=== PATIENT | female | born 1985 | race Caucasian/White ===

== ENCOUNTER 2020-08-01 19:21 | Emergency (ER) | payer SELFPAY ==
[~2020-08-01] VITALS: Ht 154.9 cm; Wt 80.0 kg
[~2020-08-01 19:21] MED LIST: CIPROFLOXACN500 MG PO; FLEXERIL PO; LORTAB 1010 MG PO; METRONIDAZOL500 MG PO; ULTRAM50 M1 PO
[2020-08-01] MEDS ORDERED: AMOXICILLIN875 MG PO (19:46)
[2020-08-01 19:53] VITALS: BP 144/78
== END 2020-08-01 19:53 | disposition home or self-care (01) | DRG 159 ==
LOC: ED 19:21
DX: K04.7 Periapical abscess without sinus (principal); K02.9 Dental caries, unspecified; F17.210 Nicotine dependence, cigarettes, uncomplicated